=== PATIENT | female | born 1975 | race Caucasian/White ===

== ENCOUNTER 2019-07-27 11:01 | Emergency (ER) | payer MEDICAID ==
[~2019-07-27] VITALS: Wt 64.5 kg
[~2019-07-27 11:01] MED LIST: CEPH-443 PO; DOCU-144 PO; HYDR-4011 PO; SULF1TAB31 PO
[2019-07-27 11:15] VITALS: BP 123/73; PULSE 58; RESP 20
== END 2019-07-27 12:54 | disposition home or self-care (01) ==
LOC: FTE 11:01
DX: N81.10 Cystocele, unspecified (principal); N76.0 Acute vaginitis
CPT/HCPCS: 81003; 81025; Z7502; 99283